=== PATIENT | male | born 1990 | race Caucasian/White ===

== ENCOUNTER 2022-01-14 19:06 | Emergency (ER) | payer OTHER, MEDICAID, SELFPAY ==
[2022-01-14 19:35] VITALS: BP 132/82; PULSE 79; RESP 16; TEMP 36.8; O2SAT 100
--- NOTE | 2022-01-14 20:11 | ED.WOUNDLAC ---
HPI - Wound/Laceration General Chief Complaint: Wound/Laceration Stated Complaint: testicle pain Time Seen by Provider: 01/14/22 19:45 Source: patient and RN notes reviewed Mode of arrival: ambulatory History of Present Illness HPI narrative: This is a 31 year old male who presents for evaluation of right scrotal laceration. PAtient states he was trying to move a lawnmower, and somehow a bolt on it caused laceration to his scrotum. He describes his pain has burning pain. He applied bandage prior to arrival. He states he has had tetanus within past 6 months. This occurred 1 hour ago. Location: genitals (right scrotum) Related Data Allergies Allergy/AdvReac Type Severity Reaction Status Date / Time No Known Allergies Allergy Verified 01/14/22 19:41 Review of Systems Review of Systems: All systems reviewed & are unremarkable except as noted in HPI and below Constitutional: Constitutional: Denies chills and Denies fever(s) Gastrointestinal: Gastrointestinal: Denies abdominal pain, Denies nausea and Denies vomiting Genitourinary: Genitourinary: Denies hematuria, Denies oliguria, Denies penile discharge and Denies urinary frequency Musculoskeletal: Musculoskeletal: Denies back pain PMF Past Medical History Medical History (Updated 01/14/22 @ 22:33 by Fabiola Friedman MD) No active medical problems Surgical History Surgical History (Updated 01/14/22 @ 22:22 by Fabiola Friedman MD) History of hip surgery Social History Social History (Updated 01/14/22 @ 22:22 by Fabiola Friedman MD) Smoking packs per day: 1 Smoking cigarettes per day: 20.0 Smoking status: Current every day smoker Exam Const: General: healthy appearing, no acute distress and alert Orientation/consciousness: patient oriented x3 HENMT: Head: normal to inspection Eyes: EOM: EOMs intact bilaterally Resp: Effort & Inspection: normal respiratory effort GI: GI Palp: Yes Soft to palpation, No Tenderness to palpation present (GI), No Guarding due to palpation present (GI) and No Rigid due to palpation Auscultation: normal bowel sounds Skin: Wounds: wounds noted Other: right scrotum with laceration 8 cm flap, no bruising or bleeding or signs of injury to testicular, connective tissue intact under skin, Neuro: General: patient oriented x3, moves all extremities and CN's II-XI intact bilaterally Course Reevaluation(s) Reevaluation #1: I Discussed case with urologist DR. Mathis. He recommended using chromic 3 or 2 for laceration with interrupted sutures. Bacitracin BID and he will need to have wound check later this week or early next week. I repaired patients wound. PAtient denied having testicular pain . He only had burning at site of laceration. He understands follow up . Date: 01/14/22 Time: 22:26 Vital Signs Vital signs: Vital Signs Temperature 98.3 F 01/14/22 19:35 Pulse Rate 79 01/14/22 19:35 Respiratory Rate 16 01/14/22 19:35 Blood Pressure 132/82 01/14/22 19:35 Pulse Oximetry 100 01/14/22 19:35 Oxygen Delivery Room Air 01/14/22 19:35 Temperature 98.3 F 01/14/22 19:35 Pulse Rate 70 01/14/22 23:31 Respiratory Rate 16 01/14/22 23:31 Blood Pressure 138/89 01/14/22 23:31 Pulse Oximetry 99 01/14/22 23:31 Oxygen Delivery Room Air 01/14/22 19:35 Procedures Laceration Laceration 1: Date: 01/14/22 Time: 22:31 Site: other (right scrotum) Side (If applicable): right Size (cm): 8 Description: flap and contaminated Depth: simple, single layer Local Anesthetic: lidocaine 2% Amount of anesthesia used (mL): 6 Pre-repair: wound explored, irrigated, irrigated extensively and deep structures intact ====== Skin Level ====== Skin layer closed with: other (chromic) Size (cm): 3-0 Number of sutures: 14 Technique: simple, interrupted ====== Subcutaneous Layer ====== ==
[2022-01-14] MEDS: ONDANSETRON HCL ODT 4 MG TABLET PO (23:00)
[2022-01-14] MEDS: HYDROcodone/acetaminophen (*CRX) 5-325 MG TABLET 1 TAB PO (23:01)
[2022-01-14 23:31] VITALS: BP 138/89; PULSE 70; RESP 16; O2SAT 99
== END 2022-01-14 23:34 | disposition home or self-care (01) ==
PROVIDERS: Emergency Provider General Practice
DX: S31.31XA Laceration without foreign body of scrotum and testes, initial encounter (principal); F17.210 Nicotine dependence, cigarettes, uncomplicated; W26.8XXA Contact with other sharp object(s), not elsewhere classified, initial encounter
CPT/HCPCS: 12004; 96365; 99283; A9270; J0690

== ENCOUNTER 2022-01-24 12:30 | Emergency (ER) | payer MEDICAID, SELFPAY ==
[2022-01-24 12:48] VITALS: BP 139/97; PULSE 112; RESP 14; TEMP 36.6; O2SAT 100
--- NOTE | 2022-01-24 13:33 | ED.GENADULT ---
HPI - General Adult General Chief complaint: Wound/Laceration Stated complaint: wound check scrotum Time Seen by Provider: 01/24/22 13:38 Source: patient Mode of arrival: ambulatory Limitations: no limitations History of Present Illness HPI narrative: 31 years old male s/p right scrotal laceration on the 12th of this month, status post repair by sutures. Patient reports thinking about having scab but noticed white hard spot to the area at this time. He denies any drainage from the wound, fever, chills. Related Data Allergies Allergy/AdvReac Type Severity Reaction Status Date / Time No Known Allergies Allergy Verified 01/14/22 19:41 Review of Systems Review of Systems: All systems reviewed & are unremarkable except as noted in HPI and below PMFSH Past Medical History Medical History No active medical problems Surgical History Surgical History History of hip surgery Social History Social History Smoking packs per day: 1 Smoking cigarettes per day: 20.0 Smoking status: Current every day smoker Exam Narrative: General appearance: Well-developed, well-nourished Skin: Normal color Abdomen: Soft, nontender, no organomegaly, quiet bowel sounds Neurologic: Alert and oriented ?3, : Penis: Yes normal penis and Yes circumcised Scrotum: scrotal swelling (Sutured wound, clean and dry, no discharge, tender, slight surrounding eryt) on the right (Slight surrounding erythema of the sutured wound which is clean and dry) Course Vital Signs Vital signs: Vital Signs Temperature 36.6 C 01/24/22 12:48 Pulse Rate 112 H 01/24/22 12:48 Respiratory Rate 14 01/24/22 12:48 Blood Pressure 139/97 H 01/24/22 12:48 Pulse Oximetry 100 01/24/22 12:48 Oxygen Delivery Room Air 01/24/22 12:48 Temperature 36.6 C 01/24/22 12:48 Pulse Rate 112 H 01/24/22 12:48 Respiratory Rate 14 01/24/22 12:48 Blood Pressure 139/97 H 01/24/22 12:48 Pulse Oximetry 100 01/24/22 12:48 Oxygen Delivery Room Air 01/24/22 12:48 Medical Decision Making Vital Signs Vital Signs: Vital Signs Temperature 36.6 C 01/24/22 12:48 Pulse Rate 112 H 01/24/22 12:48 Respiratory Rate 14 01/24/22 12:48 Blood Pressure 139/97 H 01/24/22 12:48 Pulse Oximetry 100 01/24/22 12:48 Oxygen Delivery Room Air 01/24/22 12:48 Temperature 36.6 C 01/24/22 12:48 Pulse Rate 112 H 01/24/22 12:48 Respiratory Rate 14 01/24/22 12:48 Blood Pressure 139/97 H 01/24/22 12:48 Pulse Oximetry 100 01/24/22 12:48 Oxygen Delivery Room Air 01/24/22 12:48 Critical Care Time Critical Care Time Critical Care Time: No Discharge Plan Discharge Clinical Impression: Infected wound Patient Disposition: Home, Self-Care Condition: Stable Instructions: Antibiotic Form, Wound Infection (ED) Additional Instructions: Return if symptoms are worsening , call urologist for appointment, take Tylenol as as needed for aches and pain, continue home medications. Do not pull on the wound scabs Prescriptions: New cephalexin 500 mg capsule 500 mg PO Q6H Qty: 40 0RF No Action bacitracin 500 unit/gram ointment 1 applic topical BID Qty: 28 0RF hydrocodone-acetaminophen 5-325 mg tablet 1 tablet PO Q6H PRN (Reason: pain) Qty: 10 0RF Follow-up/Referrals: PHYSICIAN,[facility] SPECIALIST [Primary Care Provider] -
--- NOTE | 2022-01-24 14:12 | PC.NURSE ---
pt refused IV, blood draw and antibx provider aware
== END 2022-01-24 14:30 | disposition home or self-care (01) ==
LOC: ANHED 14:21
PROVIDERS: Emergency Provider Emergency Medicine
DX: S31.31XA Laceration without foreign body of scrotum and testes, initial encounter (principal); L08.9 Local infection of the skin and subcutaneous tissue, unspecified; F17.210 Nicotine dependence, cigarettes, uncomplicated; X58.XXXA Exposure to other specified factors, initial encounter
CPT/HCPCS: 99283

== ENCOUNTER 2023-12-29 09:35 | Emergency (ER) | payer OTHER, SELFPAY ==
[2023-12-29] VITALS (13 sets, daily range): BP systolic 110–119; BP diastolic 65–80; PULSE 72–110; RESP 11–24; TEMP 36.7–37.1; O2SAT 99–100
--- NOTE | ~2023-12-29 | CT_ITS ---
EXAMINATION: CTA chest PE protocol DATE: 12/29/2023 11:28 INDICATION: Pleuritic chest pain. TECHNIQUE: Computed tomography angiography (CTA) of the chest was performed with 100 mL Omnipaque-350 intravenous contrast timed to evaluate the pulmonary arteries. Coronal maximum intensity projection 3D-reconstructions were created by the technologist. Automated exposure control and iterative reconst ruction technique were employed. The dose-length product was 164.97 mGy-cm. COMPARISON: None. FINDINGS: There is mild emphysema. No pleural effusion. The heart size is normal. No pericardial effu david. There is no pulmonary embolus. There is mild thoracic spondylosis. IMPRESSION: 1. No pulmonary embolus. 2. Mild emphysema. Reviewed, dictated and finalized at location A.
--- NOTE | ~2023-12-29 | XR_ITS ---
EXAMINATION: XR chest 2V DATE: 12/29/2023 10:12 INDICATION: Chest pain. Shortness of breath. TECHNIQUE: Frontal and lateral views of the chest were obtained on 3 radiographs. COMPARISON: None. FINDINGS: There is no pneumonia, pleural effusion, or pneumothorax. The heart size is normal. IMPRESSION: 1. No acute cardiopulmonary disease. Reviewed, dictated and finalized at location A.
--- NOTE | 2023-12-29 09:49 | ECG_ITS ---
Test Date: 2023-12-29 09:53:58 Measurements Intervals [place] Rate: 95 P: 78 PA: 121 QRS: 66 QRSD: 81 T: 59 QT: 353 QTc: 445 Interpretive Statements SINUS RHYTHM NONSPECIFIC ST AND T-WAVE ABNORMALITY No previous ECG available for comparison Electronically Signed On 12-29-2023 13:37:41 CDT by Thiago Kessler M.D.
[2023-12-29 10:12] LABS: Basophils Percent Auto 0.3 % (0.2-1.2); Eosinophils Percent Auto 0.2 % (0-4.4); Hematocrit 30.3 % (42.0-52.0); Hemoglobin 10.3 g/dL (14.0-18.0); Immature Granulocyte Absolute 0.06 K/mm3 (0.00-0.031); Immature Granulocyte Percent A 0.5 % (0-0.5); Lymphocytes Absolute Auto 1.55 K/mm3 (0.9-3.2); Lymphocytes Percent Auto 12.3 % (18.3-44.2); Mean Corpuscular Hemoglobin 31.6 pg (26-34); Mean Corpuscular Volume 92.9 fl (80-100); Mean Platelet Volume 11.5 fl (7.4-10.4); Monocytes Absolute Auto 0.8 K/mm3 (0.1-0.6); Monocytes Percent Auto 6.4 % (2.6-8.5); Neutrophils Absolute Auto 10.2 K/mm3 (1.3-6.7); Neutrophils Percent Auto 80.3 % (45.5-73.1); Platelet Count Result 149 k/mm3 (150-375); Red Blood Count 3.26 M/mm3 (4.6-6.20); White Blood Count 12.6 K/mm3 (4.5-10.0)
[2023-12-29 10:22] LABS: INR 1.1; Prothrombin Time 14.7 Seconds (11.1-14.7)
[2023-12-29 10:23] LABS: Partial Thromboplastin Time 33.3 Seconds (22.3-36.8)
[2023-12-29 10:26] LABS: D Dimer 1.62 ug/mL (<0.48)
[2023-12-29 10:29] LABS: Alanine Aminotransferase 28 U/L (6-50); Alkaline Phosphatase 68 U/L (38-126); Anion Gap 6 mmol/L (4-12); Aspartate Amino Transferase 126 U/L (17-59); Bilirubin,Total 0.6 mg/dL (0.2-1.3); Blood Urea Nitrogen 8 mg/dL (9-20); Calcium 8.8 mg/dL (8.4-10.2); Carbon Dioxide 28 mmol/L (22-30); Chloride 103 mmol/L (98-107); Estimated CRCL calculation 100 ml/min; Estimated Glomerular Filt Rate > 60; Glucose 105 mg/dL (65-110); Lipase 69 U/L (23-300); Potassium 3.5 mmol/L (3.4-5.0); Sodium 137 mmol/L (137-145)
[2023-12-29 10:39] LABS: Troponin I < 0.012 ng/mL (0.000-0.034)
[2023-12-29 10:40] LABS: Erythrocyte Sedimentation Rate 65 mm/hr (0-20)
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
--- NOTE | 2023-12-29 11:18 | PC.NURSE ---
Report given to Isis MEJIA, all questions answered
[2023-12-29 12:09] LABS: CRP 16.3 mg/dL (<1.0)
== END 2023-12-29 13:33 | disposition home or self-care (01) ==
PROVIDERS: Emergency Medicine; Emergency Provider Physician Assistant
DX: S91.332D Puncture wound without foreign body, left foot, subsequent encounter (principal); R07.9 Chest pain, unspecified; F17.200 Nicotine dependence, unspecified, uncomplicated; W34.00XD Accidental discharge from unspecified firearms or gun, subsequent encounter
CPT/HCPCS: 29515; 36415; 71046; 71275; 80053; 83690; 84484; 85025; 85380; 85610; 85652; 85730; 86140; 93005; 99284; Q9967

== ENCOUNTER 2025-04-08 08:49 | Emergency (ER) | payer OTHER, SELFPAY ==
--- NOTE | ~2025-04-08 | CT_ITS ---
EXAMINATION: CT abdomen pelvis w con DATE: 04/08/2025 10:41 INDICATION: Right upper quadrant abdominal pain. TECHNIQUE: Computed tomography (CT) of the abdomen and pelvis was performed with 100 mL Omnipaque 350 intravenous contrast. Automated exposure control and iterative reconstruction technique were employed. The dose-length product was 199.36 mGy-cm. COMPARISON: CT chest 12/29/2023 FINDINGS: The visualized portions of the lung bases demonstrate minimal atelectasis on the left. No pleural effusion. The heart size is normal. No pericardial effusion. The liver, gallbladder, spleen, pancreas, adrenal glands, and kidneys are normal. There are no dilated loops of bowel. The appendix is normal. There are no pathologically enlarged lymph nodes. There is no free intraperitoneal fluid. There is moderate lower lumbar spondylosis. There is mild thoracic spondylosis. IMPRESSION: 1. No specific etiology for the patient's symptoms. Reviewed, dictated and finalized at location E.
[2025-04-08 08:56] VITALS: BP 152/96; PULSE 68; RESP 16; TEMP 36.4; O2SAT 98
[2025-04-08 09:18] VITALS: BP 124/78; PULSE 61; RESP 15; O2SAT 99
[2025-04-08] MEDS: SODIUM CHLORIDE 0.9% IV 1,000 ML 999 ML IV CONT (09:28)
[2025-04-08] MEDS: ONDANSETRON INJ 4 MG/2 ML VIAL IV PUSH (09:29)
[2025-04-08] MEDS: MORPHINE SULFATE (*CRX) 4 MG/ML INJ IV PUSH (09:32)
[2025-04-08 09:50] LABS: Hematocrit 46.2 % (42.0-52.0); Hemoglobin 15.6 g/dL (14.0-18.0); Immature Granulocyte Percent A 0.3 % (0-0.5); Lymphocytes Absolute Auto 1.71 K/mm3 (0.9-3.2); Mean Corpuscular HGB Conc 33.8 g/dl (32-36); Mean Corpuscular Hemoglobin 31.5 pg (26-34); Mean Corpuscular Volume 93.3 fl (80-100); Nucleated Red Blood Cells Absolute Auto 0.000 K/mm3 (0.0-0.012); Nucleated Red Blood Cells Perc 0.0 % (0.0-0.2); Platelet Count Result 171 k/mm3 (150-375); Red Blood Count 4.95 M/mm3 (4.6-6.20); White Blood Count 11.5 K/mm3 (4.5-10.0)
[2025-04-08 09:53] LABS: Add Urine Microscopic? NO; Appearance Urine Clear (Clear); Glucose Urine UA Negative (Negative); Leukocyte Esterase Ur Negative LEU/UL (Negative); Nitrate Urine Negative (Negative); Specific Grav Ur 1.011 (1.001-1.035)
[2025-04-08 10:07] LABS: Alanine Aminotransferase 35 U/L (6-50); Albumin Level 4.3 g/dL (3.5-5.1); Alkaline Phosphatase 71 U/L (38-126); Anion Gap 4 mmol/L (4-12); Aspartate Amino Transferase 57 U/L (17-59); Bilirubin,Total 0.3 mg/dL (0.2-1.3); Blood Urea Nitrogen 13 mg/dL (9-20); Calcium 9.4 mg/dL (8.4-10.2); Carbon Dioxide 29 mmol/L (22-30); Chloride 104 mmol/L (98-107); Estimated CRCL calculation 86 ml/min; Estimated Glomerular Filt Rate > 60; Glucose 116 mg/dL (65-110); Lipase 67 U/L (23-300); Potassium 4.1 mmol/L (3.4-5.0); Sodium 137 mmol/L (137-145); Total Protein 7.1 g/dL (6.3-8.2)
--- NOTE | 2025-04-08 11:14 | PC.NURSE ---
Report given to Karime MEJIA, all questions answered.
--- NOTE | 2025-04-08 11:37 | ED_ITS ---
HPI - Abdominal Pain General Chief Complaint: Abdominal Pain Stated Complaint: abdominal pain, N/V- ate bad Ruben Time Seen by Provider: 04/08/25 08:55 Source: patient Mode of arrival: ambulatory Limitations: no limitations History of Present Illness HPI narrative: This is a 34-year-old male, with no significant past medical history presents emergency department complaining of abdominal pain, nausea and vomiting beginning last night. The patient states he ate [employer] yesterday evening and shortly thereafter developed nausea, vomiting, diarrhea and bowel distension. He denies bleeding of any kind, recent travel or known sick contacts. He has no other complaints at this time. Related Data Allergies Allergy/AdvReac Type Severity Reaction Status Date / Time No Known Allergies Allergy Verified 04/08/25 09:01 Review of Systems 2 Review of Systems: All systems reviewed & are unremarkable except as noted in HPI and below PMFSH Past Medical History Medical History No active medical problems Surgical History Surgical History History of hip surgery Social History Social History Smoking packs per day: 1 Smoking cigarettes per day: 20.0 Smoking status: Current every day smoker Exam 2 Narrative: GENERAL: Well-developed, well-nourished, and in no acute distress. HEAD: Normocephalic, atraumatic. EYES: PERRLA and EOMI. CHEST: Clear to auscultation. No respiratory distress. No wheezes rales or rhonchi HEART: Regular rate and rhythm. No murmur heard. Normal peripheral pulses. ABDOMEN: Soft, nontender, nondistended, normal active bowel sounds. EXTREMITIES: Normal range of motion. No edema. SKIN: Warm, dry, no rash. NEURO: Alert and oriented x3. No focal deficit. Moving all 4 limbs spontaneously PSYCH: Normal mood and affect. Course Course Emergency Course: 11:39 - CBC demonstrates elevated white blood cell count of 11.5 but is otherwise unremarkable. Chemistries demonstrate mildly elevated glucose of 116 but is otherwise unremarkable. Urinalysis negative. CT abdomen pelvis negative for acute intra-abdominal process. I suspect gastroenteritis cause of the patient's symptoms. Will discharge with Zofran and recommendation for primary care follow-up. I discussed the findings and recommendations with the patient. Discussed return and emergency precautions including signs/symptoms of acute abdomen and intractable vomiting. The patient voiced understanding and agreement with the plan. All questions answered to his satisfaction. Vital Signs Vital signs: Vital Signs Temperature 97.6 F 04/08/25 08:56 Pulse Rate 68 04/08/25 08:56 Respiratory Rate 16 04/08/25 08:56 Blood Pressure 152/96 H 04/08/25 08:56 Pulse Oximetry 98 04/08/25 08:56 Oxygen Delivery Room Air 04/08/25 08:56 Temperature 97.6 F 04/08/25 08:56 Pulse Rate 61 04/08/25 09:18 Respiratory Rate 15 04/08/25 09:18 Blood Pressure 124/78 04/08/25 09:18 Pulse Oximetry 99 04/08/25 09:18 Oxygen Delivery Room Air 04/08/25 08:56 MDM - Abdominal Pain MDM Narrative Medical decision making narrative: Plan: Imaging, the medics, pain control, reassess Differential Diagnosis Differential diagnosis: Likely abdominal pain, acute appendicitis, constipation, diverticulitis, gastroenteritis, pancreatitis, small bowel obstruction and other Lab Data 04/08/25 09:30 04/08/25 09:30 Labs: Lab Results 04/08/25 Range/Units 09:30 WBC 11.5 H (4.5-10.0) K/mm3 RBC 4.95 (4.6-6.20) M/mm3 Hgb 15.6 D (14.0-18.0) g/dL Hct 46.2 (42.0-52.0) % MCV 93.3 (80-100) fl MCH 31.5 (26-34) pg MCHC 33.8 (32-36) g/dl RDW 12.5 (11.5-14.5) % Plt Count 171 (150-375) k/mm3 MPV 11.4 H (7.4-10.4) fl Immature Gran % (Auto) 0.3 (0-0.5) % Neut % (Auto) 77.2 H (45.5-73.1) % Lymph % (Auto) 14.8 L (18.3-44.2) % [place] % (Auto) 6.4 (2.6-8.5) % Eos % (Auto) 1.0 (0-4.4) % Baso % (Auto) 0.3 (0.2-1.2) % Lymph # (Auto) 1.71 (0.9-3.2) K/mm3 [place] # (Auto) 0.7 H (0.1-0.6) K/mm3 Eos # (Auto) 0.1 (0-0.3) K/mm3 Baso # (Auto) 0.0 (0.0-0.1) K/mm3 Abs Immat Gran (auto) 0.04 H (0.00-0.031) K/mm3 Absolute Neuts (auto) 8.9 H (1.3-6.7) K/mm3 Absolute Nucleated RBC 0.000 (0.0-0.012) K/mm3 Nucleated RBC % 0.0 (0.0-0.2) % Sodium 137 (137-145) mmol/L Potassium 4.1 (3.4-5.0) mmol/L Chloride 104 (98-107) mmol/L Carbon Dioxide 29 (22-30) mmol/L Anion Gap 4 (4-12) mmol/L BUN 13 D (9-20) mg/dL Creatinine 0.94 (0.7-1.3) mg/dL Estim Creat Clear Calc 86 ml/min Estimated GFR > 60 (59 - ) Glucose 116 H (65-110) mg/dL Calcium 9.4 (8.4-10.2) mg/dL Total Bilirubin 0.3 (0.2-1.3) mg/dL AST 57 (17-59) U/L ALT 35 (6-50) U/L Alkaline Phosphatase 71 (38-126) U/L Total Protein 7.1 (6.3-8.2) g/dL Albumin 4.3 (3.5-5.1) g/dL Lipase 67 (23-300) U/L Urine Color Yellow (Yellow) Urine Appearance Clear (Clear) Urine pH 5.5 (5.0-9.0) Ur Specific Vendor 1.011 (1.001-1.035) Urine Protein Negative (Negative) mg/dL Urine Glucose (UA) Negative (Negative) mg/dL Urine Ketones Negative (Negative) mg/dL Ur Blood (Man) Negative (Negative) Urine Nitrate Negative (Negative) Urine Bilirubin Negative (Negative) Urine Urobilinogen 0.2 (<2.0) mg/dL Leukocyte Esterase Rfl Negative (Negative) HARJINDER/UL Imaging Data Radiologist's impression: ITS Impressions Abdomen/Pelvis CT 04/08/25 11:10 IMPRESSION: 1. No specific etiology for the patient's symptoms. Discharge Plan Discharge Clinical Impression: Gastroenteritis Abdominal pain Qualifiers: Abdominal location: unspecified location Qualified Code(s): R10.9 - Unspecified abdominal pain Patient Disposition: Home Condition: Stable Instructions: Antibiotic Form, Abdominal Pain (ED) Additional Instructions: You were seen in the emergency department. Your labs were not concerning for liver kidney injury. A urinalysis was not concerning for urinary tract infection or bleeding. As scan of the abdomen was not concerning for infection, obstruction or bowel injury. I suspect your symptoms are related to food poisoning. I recommend a bland diet and follow-up with a primary care doctor. If you develop severe abdominal pain, abdominal pain with fevers, persistent vomiting, or if you have other emergent concerns for life, limb, or eyesight, return to the emergency department. Patient Language: Ecuadorean Prescriptions: New ondansetron 4 mg tablet,disintegrating 4 mg PO Q8H PRN (Reason: nausea and vomiting) Qty: 12 0RF No Action cephalexin 500 mg capsule 500 mg PO Q6H Qty: 40 0RF hydrocodone-acetaminophen 5-325 mg tablet 1 tablet PO Q6H PRN (Reason: pain) Qty: 10 0RF bacitracin 500 unit/gram ointment 1 applic topical BID Qty: 28 0RF hydrocodone-acetaminophen 5-325 mg tablet 1 tablet PO Q6H PRN (Reason: pain) Qty: 10 0RF Follow-up/Referrals: Blanca Corado DO [Physician, Family Practice] - 2 Weeks Time of Disposition: 11:39
[2025-04-08 11:49] VITALS: BP 117/74; PULSE 63; RESP 15; TEMP 36.6; O2SAT 100
== END 2025-04-08 11:51 | disposition home or self-care (01) ==
PROVIDERS: Emergency Provider Preventive Medicine Aerospace Medicine
DX: K52.9 Noninfective gastroenteritis and colitis, unspecified (principal); F17.210 Nicotine dependence, cigarettes, uncomplicated
CPT/HCPCS: 36415; 74177; 80053; 81003; 83690; 85025; 96361; 96374; 96375; 99284; J2270; J2405; J7030; Q9967